=== PATIENT | female | born 1970 | race African-American/Black ===

== ENCOUNTER 2024-07-10 07:52 | Emergency (ER) | payer MEDICAID ==
[~2024-07-10] VITALS: Ht 165.1 cm; Wt 113.0 kg
[2024-07-10 08:07] VITALS: O2SAT 99
[2024-07-10 09:19] VITALS: BP 138/84; PULSE 85; RESP 18; TEMP 36.83628; O2SAT 100
== END 2024-07-10 09:21 | disposition home or self-care (01) ==
LOC: ER 08:15
DX: S46.912A Strain of unspecified muscle, fascia and tendon at shoulder and upper arm level, left arm, initial encounter (principal); Z98.890 Other specified postprocedural states; X58.XXXA Exposure to other specified factors, initial encounter; Y93.89 Activity, other specified; Y92.89 Other specified places as the place of occurrence of the external cause; Y99.8 Other external cause status
CPT/HCPCS: 99281; Z7610